=== PATIENT | female | born 1990 | race Hispanic/Latino ===

== ENCOUNTER 2021-01-05 10:23 | Outpatient (CLI) | payer BC ==
[2021-01-05 17:38] LABS: SARS-CoV-2 PCR by NAA Not Detected (NotDetected)
== END 2021-01-05 10:24 | disposition home or self-care (01) ==
LOC: CSHLAB 10:23
PROVIDERS: ATTEND Podiatrist Foot & Ankle Surgery
DX: Z01.812 Encounter for preprocedural laboratory examination (principal); Z20.822 Contact with and (suspected) exposure to COVID-19
CPT/HCPCS: U0003; U0005

== ENCOUNTER 2021-01-07 11:09 | Day surgery (SDC) | payer BC ==
[2021-01-07] MEDS ORDERED: Lidocaine 1% MPF 2 ML VIAL ONE (11:37)
[2021-01-07] MEDS ORDERED: Bupivacaine PF 0.5% 30 ML VIAL ONE (11:40)
[2021-01-07] MEDS ORDERED: Neomycin-Polymyxin 1 ML AMP ONE (11:41)
[2021-01-07] MEDS ORDERED: Midazolam HCl 2 mg/2 ml Vial ONE (12:01)
[2021-01-07] MEDS ORDERED: Lidocaine 1% PF 5 ML VIAL ONE (12:01)
[2021-01-07] MEDS ORDERED: Fentanyl 100 MCG/2 ML VIAL ONE ×2 (12:01→13:32)
[2021-01-07] MEDS ORDERED: PROPOFOL 20 ML ONE ×2 (12:01→12:19)
[2021-01-07] MEDS ORDERED: Dexamethasone 4 mg/ml Vial ONE (12:01)
[2021-01-07] MEDS ORDERED: Ketorolac Tromethamine 30 MG/ML VIAL ONE (12:02)
[2021-01-07] MEDS ORDERED: Ondansetron PF 4 MG/2 ML Vial ONE ×2 (12:06→14:23)
[2021-01-07] MEDS ORDERED: Promethazine HCl 25 MG/ML VIAL IM PRN (12:15)
[2021-01-07] MEDS ORDERED: Zolpidem Tartrate 5 MG TAB PO PRN (12:15)
[2021-01-07] MEDS ORDERED: Ondansetron PF 4 MG/2 ML Vial IVP PRN (12:15)
[2021-01-07] MEDS ORDERED: Ropivacaine 0.2% 550 ML 550 ML NERVE BLCK SCH (12:15)
[2021-01-07] MEDS ORDERED: ePHEDrine Sulfate 50 MG/10 ML VIAL ONE (13:00)
[2021-01-07] MEDS ORDERED: Albuterol Sulfate HFA (OR ONLY) ONE (13:32)
== END 2021-01-07 14:45 | disposition home or self-care (01) ==
LOC: CSHSDC 11:09
PROVIDERS: ATTEND Podiatrist Foot & Ankle Surgery
PROC: 0SGL04Z Fusion of Left Tarsometatarsal Joint with Internal Fixation Device, Open Approach (ICD-10-PCS; principal; 2021-01-07)
DX: T84.84XA Pain due to internal orthopedic prosthetic devices, implants and grafts, initial encounter (principal); M96.0 Pseudarthrosis after fusion or arthrodesis; M25.375 Other instability, left foot; J45.909 Unspecified asthma, uncomplicated; Z79.899 Other long term (current) drug therapy; Z79.3 Long term (current) use of hormonal contraceptives
CPT/HCPCS: 76000; A4306; C1713; J0690; J1100; J1885; J2250; J2405; J2704; J2795; J3010; S0020